=== PATIENT | male | born 1975 | race Caucasian/White ===

== ENCOUNTER 2021-08-24 21:07 | Emergency (ER) | payer SELFPAY ==
[~2021-08-24] VITALS: Ht 188 cm; Wt 113.4 kg
--- NOTE | 2021-08-24 21:07 | NUR ---
PT BIB [facility], PREBOOK. TAKEN TO CHAIR
[2021-08-24 21:10] VITALS: BP 133/85
--- NOTE | 2021-08-24 21:21 | NUR ---
PT SEEN AND ASSESED BY JARON. NO NURSING INTERVENTIONS NEEDED
== END 2021-08-24 21:21 ==
LOC: MED 21:07
DX: Z02.89 Encounter for other administrative examinations (principal); V89.2XXA Person injured in unspecified motor-vehicle accident, traffic, initial encounter; Y93.89 Activity, other specified; Y92.89 Other specified places as the place of occurrence of the external cause; Y99.8 Other external cause status
CPT/HCPCS: 99283